=== PATIENT | male | born 1960 | race Caucasian/White ===

== ENCOUNTER 2020-04-17 02:44 | Inpatient (IN) | payer MEDICAID ==
[~2020-04-17] VITALS: Ht 167.6 cm; Wt 76.7 kg
[2020-04-17] VITALS (7 sets, daily range): BP systolic 132–167; BP diastolic 62–91
[2020-04-17] MEDS ORDERED: SODIUM CHLORIDE 0.9% 1,000 ML IV ONE (03:00)
[2020-04-17 03:15] LABS: BASOPHILS % 1.3 % (0.0-2.0); EOSINOPHILS % 6.1 % (0.0-5.0); HEMATOCRIT. 42.5 % (42.0-52.0); HEMOGLOBIN. 14.8 g/dL (14.0-18.0); LYMPHOCYTES % 34.8 % (20.0-50.0); MEAN CORPUSCULAR HEMOGLOBIN 33.2 pg (28.0-32.0); MEAN PLATELET VOLUME 8.3 fl (7.4-10.4); MONOCYTES % 7.3 % (2.0-8.0); NEUTROPHILS % 50.5 % (40.0-76.0); PLATELET 178 x1000/uL (130-400); RED BLOOD CELL COUNT 4.47 mill/uL (4.7-6.1); RED CELL DISTRIBUTION WIDTH 12.1 % (11.6-14.6)
[2020-04-17 03:16] LABS: CHLORIDE 102 mEq/L (98-107)
[2020-04-17 03:20] LABS: PROTHROMBIN TIME 10.4 sec (9.6-11.0)
[2020-04-17 03:21] LABS: ETHANOL BLOOD < 10 mg/dL
[2020-04-17 04:35] LABS: CLARITY URINE CLEAR (CLEAR); COLOR URINE YELLOW (YELLOW); KETONES URINE NEGATIVE (NEGATIVE); LEUKOCYTE ESTERASE URINE NEGATIVE (NEGATIVE); NITRITE URINE NEGATIVE (NEGATIVE); OCCULT BLOOD URINE NEGATIVE (NEGATIVE); PH URINE 6.5 (4.5-8.0); PROTEIN URINE NEGATIVE (NEGATIVE); SPECIFIC GRAVITY URINE 1.008 (1.005-1.030); UROBILINOGEN URINE 0.2 E.U./dL (0.2-1.0)
[2020-04-17 05:09] LABS: *BARBITURATES SCREEN URINE NEGATIVE (NEGATIVE); CANNABINOID URINE SCREEN NEGATIVE (NEGATIVE); OPIATES URINE SCREEN NEGATIVE (NEGATIVE); PHENCYCLIDINE URINE SCREEN NEGATIVE (NEGATIVE)
[2020-04-17 05:10] LABS: *BENZODIAZEPINES SCREEN URINE NEGATIVE (NEGATIVE); *COCAINE SCREEN URINE NEGATIVE (NEGATIVE); METHADONE URINE SCREEN NEGATIVE (NEGATIVE)
[2020-04-17 05:13] LABS: *AMPHETAMINES SCREEN URINE NEGATIVE (NEGATIVE)
[2020-04-17] MEDS ORDERED: ASPIRIN 325MG TABLET PO ONE (05:15)
[2020-04-17] MEDS ORDERED: ENOXAPARIN 40MG/0.4ML SYR SUBCUT SCH (11:45)
[2020-04-17] MEDS ORDERED: ACETAMINOPHEN 325MG TABLET PO PRN (11:45)
[2020-04-17] MEDS ORDERED: DEXTROSE 50% WATER 50ML SYRINGE IV PRN ×2 (11:45)
[2020-04-17] MEDS ORDERED: ONDANSETRON HCL 4MG/2ML INJ IV PRN (11:45)
[2020-04-17] MEDS ORDERED: BLOOD SUGAR DIAGNOSTIC STRIP TEST SCH (11:50)
[2020-04-17] MEDS ORDERED: INSULIN LISPRO 100 UNITS/ML SUBCUT SCH ×2 (12:20)
[2020-04-17] MEDS: BLOOD SUGAR DIAGNOSTIC STRIP TEST SCH ×3 (12:47→21:42)
[2020-04-17] MEDS: AMLODIPINE 10MG TABLET PO SCH (12:48)
[2020-04-17] MEDS: ENOXAPARIN 40MG/0.4ML SYR SUBCUT SCH (12:48)
[2020-04-17] MEDS: INSULIN LISPRO 100 UNITS/ML SUBCUT SCH ×2 (17:13→21:00)
[2020-04-17] MEDS ORDERED: ATORVASTATIN CALCIUM 40MG TABLET PO SCH (21:00)
[2020-04-18] VITALS (12 sets, daily range): BP systolic 119–156; BP diastolic 67–93
[2020-04-18] MEDS: LEVOTHYROXINE SODIUM 50MCG TABLET PO SCH (05:33)
[2020-04-18] MEDS: BLOOD SUGAR DIAGNOSTIC STRIP TEST SCH ×4 (06:49→21:25)
[2020-04-18 07:05] LABS: CHLORIDE 103 mEq/L (98-107)
[2020-04-18 07:38] LABS: BASOPHILS % 0.9 % (0.0-2.0); EOSINOPHILS % 4.5 % (0.0-5.0); HEMATOCRIT. 43.4 % (42.0-52.0); HEMOGLOBIN. 15.4 g/dL (14.0-18.0); LYMPHOCYTES % 32.2 % (20.0-50.0); MEAN CORPUSCULAR HEMOGLOBIN 33.7 pg (28.0-32.0); MEAN CORPUSCULAR VOLUME 95.3 fL (80.0-94.0); MEAN PLATELET VOLUME 8.3 fl (7.4-10.4); NEUTROPHILS % 56.4 % (40.0-76.0); PLATELET 172 x1000/uL (130-400); RED BLOOD CELL COUNT 4.56 mill/uL (4.7-6.1); RED CELL DISTRIBUTION WIDTH 12.5 % (11.6-14.6)
[2020-04-18] MEDS: CLOPIDOGREL 75MG TABLET PO SCH (08:26)
[2020-04-18] MEDS: ASPIRIN 81MG TABLET PO SCH (08:26)
[2020-04-18] MEDS: AMLODIPINE 10MG TABLET PO SCH (08:27)
[2020-04-18] MEDS: INSULIN LISPRO 100 UNITS/ML SUBCUT SCH ×4 (08:29→21:24)
[2020-04-18] MEDS ORDERED: ASPIRIN 81MG TABLET PO SCH (09:00)
[2020-04-18] MEDS: ENOXAPARIN 40MG/0.4ML SYR SUBCUT SCH (11:57)
[2020-04-19] VITALS (9 sets, daily range): BP systolic 112–146; BP diastolic 74–86
[2020-04-19] MEDS: LEVOTHYROXINE SODIUM 50MCG TABLET PO SCH (05:50)
[2020-04-19] MEDS: BLOOD SUGAR DIAGNOSTIC STRIP TEST SCH ×4 (06:30→21:03)
[2020-04-19 07:33] LABS: CHLORIDE 100 mEq/L (98-107)
[2020-04-19 08:06] LABS: BASOPHILS % 0.8 % (0.0-2.0); EOSINOPHILS % 5.4 % (0.0-5.0); HEMATOCRIT. 43.5 % (42.0-52.0); HEMOGLOBIN. 15.6 g/dL (14.0-18.0); LYMPHOCYTES % 32.3 % (20.0-50.0); MEAN CORPUSCULAR HEMOGLOBIN 34.1 pg (28.0-32.0); MEAN CORPUSCULAR VOLUME 95.2 fL (80.0-94.0); MEAN PLATELET VOLUME 8.5 fl (7.4-10.4); MONOCYTES % 6.1 % (2.0-8.0); NEUTROPHILS % 55.4 % (40.0-76.0); PLATELET 176 x1000/uL (130-400); RED BLOOD CELL COUNT 4.57 mill/uL (4.7-6.1); RED CELL DISTRIBUTION WIDTH 12.1 % (11.6-14.6)
[2020-04-19] MEDS: CLOPIDOGREL 75MG TABLET PO SCH (08:36)
[2020-04-19] MEDS: ASPIRIN 81MG TABLET PO SCH (08:36)
[2020-04-19] MEDS: AMLODIPINE 10MG TABLET PO SCH (08:37)
[2020-04-19] MEDS: INSULIN LISPRO 100 UNITS/ML SUBCUT SCH ×4 (08:39→21:05)
[2020-04-19] MEDS: ENOXAPARIN 40MG/0.4ML SYR SUBCUT SCH (12:26)
[2020-04-20] VITALS (13 sets, daily range): BP systolic 106–139; BP diastolic 22–92
[2020-04-20] MEDS: LEVOTHYROXINE SODIUM 50MCG TABLET PO SCH (06:15)
[2020-04-20] MEDS: BLOOD SUGAR DIAGNOSTIC STRIP TEST SCH ×4 (06:15→21:00)
[2020-04-20 06:56] LABS: BASOPHILS % 0.5 % (0.0-2.0); EOSINOPHILS % 5.7 % (0.0-5.0); HEMATOCRIT. 42.8 % (42.0-52.0); HEMOGLOBIN. 15.3 g/dL (14.0-18.0); LYMPHOCYTES % 27.5 % (20.0-50.0); MEAN CORPUSCULAR HEMOGLOBIN 33.7 pg (28.0-32.0); MEAN CORPUSCULAR VOLUME 94.6 fL (80.0-94.0); MEAN PLATELET VOLUME 8.4 fl (7.4-10.4); MONOCYTES % 4.9 % (2.0-8.0); NEUTROPHILS % 61.4 % (40.0-76.0); PLATELET 180 x1000/uL (130-400); RED BLOOD CELL COUNT 4.52 mill/uL (4.7-6.1); RED CELL DISTRIBUTION WIDTH 12.1 % (11.6-14.6)
[2020-04-20 06:58] LABS: CHLORIDE 101 mEq/L (98-107)
[2020-04-20] MEDS: CLOPIDOGREL 75MG TABLET PO SCH (08:09)
[2020-04-20] MEDS: AMLODIPINE 10MG TABLET PO SCH (08:10)
[2020-04-20] MEDS: ASPIRIN 81MG TABLET PO SCH (08:10)
[2020-04-20] MEDS: INSULIN LISPRO 100 UNITS/ML SUBCUT SCH ×4 (08:12→21:34)
[2020-04-20] MEDS: ENOXAPARIN 40MG/0.4ML SYR SUBCUT SCH (11:10)
[2020-04-20] MEDS ORDERED: AMLO10TA80 PO (13:21)
[2020-04-20] MEDS ORDERED: ASPI-1160 PO (13:21)
[2020-04-20] MEDS ORDERED: CLOP75TA15 PO (13:21)
[2020-04-20] MEDS ORDERED: LEVO50TA8 PO (13:21)
[2020-04-21] VITALS (9 sets, daily range): BP systolic 117–146; BP diastolic 66–87
[2020-04-21] MEDS: BLOOD SUGAR DIAGNOSTIC STRIP TEST SCH ×4 (06:50→21:38)
[2020-04-21] MEDS: LEVOTHYROXINE SODIUM 50MCG TABLET PO SCH (07:12)
[2020-04-21] MEDS: AMLODIPINE 10MG TABLET PO SCH (08:07)
[2020-04-21] MEDS: CLOPIDOGREL 75MG TABLET PO SCH (08:11)
[2020-04-21] MEDS: ASPIRIN 81MG TABLET PO SCH (08:11)
[2020-04-21] MEDS: INSULIN LISPRO 100 UNITS/ML SUBCUT SCH ×5 (08:11→21:49)
[2020-04-21] MEDS: ENOXAPARIN 40MG/0.4ML SYR SUBCUT SCH (11:45)
[2020-04-22] VITALS: BP 119/83
[2020-04-22 04:00] VITALS: BP 130/87
[2020-04-22] MEDS: LEVOTHYROXINE SODIUM 50MCG TABLET PO SCH (06:51)
[2020-04-22] MEDS: BLOOD SUGAR DIAGNOSTIC STRIP TEST SCH ×2 (06:51→12:43)
[2020-04-22 08:00] VITALS: BP 122/68
[2020-04-22] MEDS: CLOPIDOGREL 75MG TABLET PO SCH (08:57)
[2020-04-22] MEDS: ASPIRIN 81MG TABLET PO SCH (08:57)
[2020-04-22] MEDS: AMLODIPINE 10MG TABLET PO SCH (08:57)
[2020-04-22] MEDS: INSULIN LISPRO 100 UNITS/ML SUBCUT SCH ×2 (09:00→13:27)
[2020-04-22 10:34] VITALS: BP 122/68
[2020-04-22] MEDS: ENOXAPARIN 40MG/0.4ML SYR SUBCUT SCH (11:48)
[2020-04-22 12:00] VITALS: BP 129/76
== END 2020-04-22 14:30 | DRG 45 ==
LOC: ER 02:44 → 3WST 05:51 → ENRESERV 09:13 → 6EST 04-21 11:31 → 3WST 04-21 11:38 → 6EST 04-21 12:33
PROVIDERS: ADMIT Internal Medicine; ATTEND Internal Medicine
PROC: 4A10X4Z Monitoring of Central Nervous Electrical Activity, External Approach (ICD-10-PCS; principal; 2020-04-18)
DX: I63.9 Cerebral infarction, unspecified (principal); E87.1 Hypo-osmolality and hyponatremia; I10 Essential (primary) hypertension; E11.9 Type 2 diabetes mellitus without complications; E03.9 Hypothyroidism, unspecified; E78.5 Hyperlipidemia, unspecified; D72.819 Decreased white blood cell count, unspecified; F17.210 Nicotine dependence, cigarettes, uncomplicated; R29.810 Facial weakness; R74.01 Elevation of levels of liver transaminase levels; R47.81 Slurred speech; Z60.2 Problems related to living alone; G81.94 Hemiplegia, unspecified affecting left nondominant side; Z20.822 Contact with and (suspected) exposure to COVID-19; R29.818 Other symptoms and signs involving the nervous system; Z71.6 Tobacco abuse counseling
CPT/HCPCS: 36415; 70544; 70553; 71045; 80048; 80053; 80061; 80305; 80320; 81003; 82962; 83036; 84443; 84484; 85025; 87426; 92610; 93005; 93880; 95816; 97112; 97162; 97166; 97530; 97535; 99291; J1650; J1815; J7030; G0480